=== PATIENT | male | born 1950 | race Caucasian/White ===

== ENCOUNTER 2017-01-21 14:16 | Outpatient (CLI) | END 2017-01-21 14:17 | disposition home or self-care (01) | LOC: AMBL 14:16 | PROVIDERS: ATTEND Emergency Medicine | DX: S61.412A Laceration without foreign body of left hand, initial encounter (principal); S09.90XA Unspecified injury of head, initial encounter; V58.6XXA Passenger in pick-up truck or van injured in noncollision transport accident in traffic accident, initial encounter ==